=== PATIENT | female | born 1990 ===

== ENCOUNTER 2022-05-10 11:56 | Emergency (ER) | payer OTHER, SELFPAY ==
--- NOTE | 2022-05-10 | DI.US.S_ITS ---
PROCEDURE: US RENAL COMPLETE INDICATIONS: ENLARGED OVARIAN CYSTS BILATERAL ?MASS EFFECT TECHNIQUE: Real-time scanning was performed of the kidneys and bladder, with image documentation. COMPARISON: None. FINDINGS: Kidneys: Kidneys are normal in size. Right kidney measures 12.3 cm long; left kidney measures 11.3 cm long. Right renal cortical thickness is 1.3 cm; left renal cortical thickness is 1.9 cm. Renal cortical echotexture is normal. No hydronephrosis or nephrolithiasis. Trace pelviectasis of the right kidney. No suspicious solid mass lesions. Bladder: Pre-void bladder volume is 314 mL. Post-void residual is 14 mL. Pre-void images demonstrate no intraluminal masses or stones. On pre-void images, bilateral ureteral jets are noted with color Doppler interrogation. (Of note, ureteral jets may not be detectable in up to 25% of cases due to insufficient differences in specific gravity between ureteral and bladder urine). Miscellaneous: No free pelvic fluid. IMPRESSION: Unremarkable renal ultrasound. Dictated by: Dar Rojas M.D. on 05/10/2022 at 17:54 Approved by: Dar Rojas M.D. on 05/10/2022 at 17:56
[2022-05-10 12:07] VITALS: BP 119/70; PULSE 71; RESP 16; TEMP 36.8; O2SAT 100; BMI 29.0
[2022-05-10 12:25] LABS: Add Manual Diff / Slide Review NO; Basophils Absolute Auto 100 /uL (0-100); Basophils Percent Auto 0.6 % (0-2); Eosinophils Absolute Auto 0 /uL (0-450); Eosinophils Percent Auto 0.4 % (2-4); Hematocrit 41.3 % (36-46); Hemoglobin 13.5 g/dL (12.0-16.0); Lymphocytes Absolute Auto 900 /uL (1100-4500); Lymphocytes Percent Auto 9.9 % (25-40); Mean Corpuscular HGB Conc 32.7 % (30-36); Mean Corpuscular Hemoglobin 27.3 PG (26-34); Mean Corpuscular Volume 83.7 fL (80-100); Monocytes Absolute Auto 500 /uL (0-900); Monocytes Percent Auto 5.4 % (3-14); Neutrophils Absolute Auto 8000 /uL (1500-7000); Neutrophils Percent Auto 83.7 % (50-75); Platelet Count 298 X10^3/uL (150-400); Red Blood Cell Count 4.93 X10^6/uL (4.0-5.2); Red Cell Distribution Width 14.4 % (11.6-14.8); White Blood Cell Count 9.5 X10^3/uL (4.5-11.0)
[2022-05-10 12:37] LABS: Alanine Aminotransferase 20 IU/L (<35); Albumin 4.7 g/dL (3.5-5.0); Albumin Globulin Ratio 1.3 (1.0-2.8); Alkaline Phosphatase 63 U/L (38-126); Aspartate Aminotransferase 25 IU/L (14-36); BUN Creatinine Ratio 15.1 (6-22); Blood Urea Nitrogen 11 mg/dL (7-17); Calcium 8.9 mg/dL (8.4-10.2); Carbon Dioxide 29 mmol/L (22-32); Chloride 100 mmol/L (98-107); Estimated Glomerular Filt Rate > 60 mL/min (>60); Globulin 3.6 g/dL (1.7-4.1); Glucose 102 mg/dL (70-100); HEMOLYSIS < 15 (0-50); Lipase 106 U/L (23-300); Potassium 3.6 mmol/L (3.4-5.1); Sodium 137 mmol/L (137-145); Total Protein 8.3 g/dL (6.3-8.2)
--- NOTE | 2022-05-10 13:03 | ED.ABDPAIN ---
HPI - Abdominal Pain <RANDALL Caban - Last Filed: 05/10/22 18:35> General Chief Complaint: Abdominal Pain Stated Complaint: stomach pain sent from urgent care Time Seen by Provider: 05/10/22 12:47 Source: patient Mode of arrival: Ambulatory History of Present Illness HPI narrative: This is a 31-year-old female presents to the emergency department with 4 days of pelvic discomfort she describes as pressure, bloating, urinary frequency and urgency without dysuria. She states that her stools have been loose for approximately 6 months but without blood. She denies nausea vomiting. Denies fever chills, has her 1st appointment with primary care tomorrow with Dr. Margareth jones. She went to urgent care initially and was sent to the emergency department for further evaluation. Her urine dip at urgent care was negative for WBCs, leukocyte esterase and RBCs. No your microscopy was completed. She denies abnormal vaginal discharge, denies fever chills, denies upper respiratory symptoms or flank pain. She states her pain started in the suprapubic region and then has been moving upwards in her abdomen. Her last menses was on April 24. She is not on control, does not take any hormonal medications, has not had any trauma. Related Data Home Medications Medication Instructions Recorded Confirmed No Known Home Medications 05/10/22 05/11/22 Allergies Allergy/AdvReac Type Severity Reaction Status Date / Time No Known Drug Allergies Allergy Unverified 05/11/22 14:00 Review of Systems <RANDALL Caban - Last Filed: 05/10/22 18:35> Review of Systems ROS Unobtainable: All systems reviewed & are unremarkable except as noted in HPI and below Patient History <RANDALL Caban - Last Filed: 05/10/22 18:35> Social History Smoking Status: Never smoker Smoking Status: Never smoker alcohol intake frequency: holidays/special occasions only Substance Use Type: marijuana Exam <RANDALL Caban - Last Filed: 05/10/22 18:35> Narrative Exam Narrative: Reviewed vitals signs and nursing notes. General: cooperative, comfortable, in no acute distress, well groomed, afebrile HEENT: symmetrical facial expressions, moist mucous membranes Cardiovascular: regular rate and rhythm, no peripheral edema, warm extremities Respiratory: normal effort, able to speak in complete sentences, without wheezing, stridor, or abnormal breath sounds. No retractions or tachypnea. GI: abdomen soft, nontender to palpation, nondistended, without masses, rebound tenderness or exquisite tenderness with exam. No CVAT bilaterally, complains of bladder fullness and abdominal distention, MSK: moves all extremities, neurovascularly intact, no weakness, normal tone Skin: brisk capillary refill, without pallor or erythema Neuro: normal speech and cognition, A&O x3, ambulatory, clear speech Psych: mental status is grossly normal, congruent mood, normal affect, pleasant and cooperative Initial Vital Signs Initial Vital Signs: Vital Signs Temperature 98.3 F 05/10/22 12:07 Pulse Rate 71 05/10/22 12:07 Respiratory Rate 16 05/10/22 12:07 Blood Pressure 119/70 05/10/22 12:07 Pulse Oximetry 100 05/10/22 12:07 Oxygen Delivery Method Room Air 05/10/22 12:07 <Gloria Scales DO - Last Filed: 05/12/22 14:15> Initial Vital Signs Initial Vital Signs: Vital Signs Temperature 98.3 F 05/10/22 12:07 Pulse Rate 71 05/10/22 12:07 Respiratory Rate 16 05/10/22 12:07 Blood Pressure 119/70 05/10/22 12:07 Pulse Oximetry 100 05/10/22 12:07 Oxygen Delivery Method Room Air 05/10/22 12:07 Course <RANDALL Caban - Last Filed: 05/10/22 18:35> Orders Ordered: Discontinued Medications Ketorolac Tromethamine (Ketorolac 10 Mg Tablet) 10 mg PO NOW ONE Stop: 05/10/22 15:50 Last Admin: 05/10/22 16:36 Dose: Not Given Documented By: LATRELL Ondansetron HCl (Ondansetron 4 Mg Odt) 4 mg PO NOW PRN PRN Reason: Nausea And Vomiting Ondansetron HCl (Ondansetron 4 Mg/2 Ml Inj) 4 mg IV NOW PRN PRN Reason: Nausea And Vomiting Ondansetron HCl (Ondansetron 4 Mg Odt) 4 mg SL NOW ONE Stop: 05/10/22 15:50 Last Admin: 05/10/22 16:36 Dose: Not Given Documented By: LATRELL Vital Signs Vital signs: Vital Signs - 8 hr 05/10/22 12:07 05/10/22 17:53 Temperature 98.3 F 98.8 F Pulse Rate 71 73 Respiratory Rate 16 18 Blood Pressure 119/70 119/66 Pulse Oximetry 100 100 Oxygen Delivery Method Room Air Room Air <Gloria Scales DO - Last Filed: 05/12/22 14:15> Orders Ordered: Discontinued Medications Ketorolac Tromethamine (Ketorolac 10 Mg Tablet) 10 mg PO NOW ONE Stop: 05/10/22 15:50 Last Admin: 05/10/22 16:36 Dose: Not Given Documented By: LATRELL Ondansetron HCl (Ondansetron 4 Mg Odt) 4 mg PO NOW PRN PRN Reason: Nausea And Vomiting Ondansetron HCl (Ondansetron 4 Mg/2 Ml Inj) 4 mg IV NOW PRN PRN Reason: Nausea And Vomiting Ondansetron HCl (Ondansetron 4 Mg Odt) 4 mg SL NOW ONE Stop: 05/10/22 15:50 Last Admin: 05/10/22 16:36 Dose: Not Given Documented By: LATRELL Vital Signs Vital signs: Vital Signs - 8 hr 05/10/22 12:07 05/10/22 17:53 Temperature 98.3 F 98.8 F Pulse Rate 71 73 Respiratory Rate 16 18 Blood Pressure 119/70 119/66 Pulse Oximetry 100 100 Oxygen Delivery Method Room Air Room Air MDM - Abdominal Pain <RANDALL Caban - Last Filed: 05/10/22 18:35> Lab Data 05/10/22 12:19 05/10/22 12:19 Labs: Lab Results 05/10/22 05/10/22 05/10/22 Range/Units 12:19 12:19 13:50 WBC 9.5 (4.5-11.0) X10^3/uL RBC 4.93 (4.0-5.2) X10^6/uL Hgb 13.5 (12.0-16.0) g/dL Hct 41.3 (36-46) % MCV 83.7 (80-100) fL MCH 27.3 (26-34) PG MCHC 32.7 (30-36) % RDW 14.4 (11.6-14.8) % Plt Count 298 (150-400) X10^3/uL Neut % (Auto) 83.7 H (50-75) % Lymph % (Auto) 9.9 L (25-40) % [place] % (Auto) 5.4 (3-14) % Eos % (Auto) 0.4 L (2-4) % Baso % (Auto) 0.6 (0-2) % Neut # (Auto) 8000 H (7901-7067) /uL Lymph # (Auto) 900 L (2875-8582) /uL [place] # (Auto) 500 (0-900) /uL Eos # (Auto) 0 (0-450) /uL Baso # (Auto) 100 (0-100) /uL Sodium 137 (137-145) mmol/L Potassium 3.6 (3.4-5.1) mmol/L Chloride 100 (98-107) mmol/L Carbon Dioxide 29 (22-32) mmol/L BUN 11 (7-17) mg/dL Creatinine 0.73 (0.52-1.04) mg/dL Estimated GFR > 60 (>60) mL/min BUN/Creatinine Ratio 15.1 (6-22) Glucose 102 H (70-100) mg/dL Calcium 8.9 (8.4-10.2) mg/dL Total Bilirubin 1.0 (0.2-1.3) mg/dL AST 25 (14-36) IU/L ALT 20 (<35) IU/L Alkaline Phosphatase 63 (38-126) U/L Total Protein 8.3 H (6.3-8.2) g/dL Albumin 4.7 (3.5-5.0) g/dL Globulin 3.6 (1.7-4.1) g/dL Albumin/Globulin Ratio 1.3 (1.0-2.8) Lipase 106 (23-300) U/L Urine RBC None seen (0-5/HPF) Urine WBC None seen (0-5/HPF) Ur Squamous Epith Cells 1-5 /hpf (0-5/HPF) Urine Bacteria None seen (None) Ur Culture Indicated? Cult not indicated Point of care testing: Point of Care Testing Test Results Negative Urine Dip Bedside Urine Glucose Negative Bedside Urine Bilirubin - Negative Bedside Urine Ketone - Negative Urine Specific [place] 1.010 Bedside Urine Occult Blood - Negative Bedside Urine pH 6.5 Bedside Urine Protein - Negative Bedside Urine Urobilinogen - Negative Bedside Urine Nitrite - Negative Bedside Urine Leukocytes - Negative Esterase Imaging Data US - UNIT RECEPTIONIST: Radiologist's Impression: PROCEDURE:? US PELVIC COMPLETE ? INDICATIONS:? PELVIC PAIN ? TECHNIQUE:? Real-time scanning was performed of the pelvic organs, with image documentation.? Additional endovaginal scanning was necessary due to incomplete visualization of the adnexal and endometrial structures by transabdominal scanning.? ? COMPARISON:? None. ? FINDINGS:? ?? Uterus:? Uterus is anteverted and normal in size at 8.6 x 5.9 x 4.1 cm. The myometrium is homogeneous. ? The endometrium measures 11 mm combined thickness.? No fibroids.? The endometrium is arcuate in appearance. ? Ovaries:? Right ovary:? 10.0 x 5.9 x 5.6 cm, with an ovarian volume of 171.8 mL.? There is flow within the ovary, indicating no evidence of torsion.? The right ovary contains multiple cystic structures with diffuse echoes within them.? The 1st measures cyst is 5 x 4 x 3.6 cm.? The 2nd cyst is 3.5 x 3.5 x 2.5 cm.? These may potentially represent endometrioma.? Cannot exclude dermoid. ? Left ovary:? 8.8 x 8.8 x 8.0 cm, with a volume of 322 mL.? The left ovary has a large cystic structure which measures 8.4 x 7.9 x 5.6 cm.? There is flow within the left ovary. ?No evidence of left ovarian torsion.? Structure may potentially represent endometrioma.? Dermoid is also possible.? ? Other:? No pathologic free abdominal or pelvic fluid. ? ? IMPRESSION:? ? 1. No evidence of ovarian torsion. ? 2. Both ovaries have large cystic structures with internal echoes which are not typical for hemorrhagic cysts.? Consider endometriomas.? Consider possible dermoids. ? 3. Normal size uterus with arcuate endometrial cavity. ? Comment:? Consider CT to evaluate for presence or absence of fat within these adnexal structures. ? Comment: Findings were discussed with? Dr. Mooney at the time of study dictation. ? We strive to produce accurate, complete, and clear reports of imaging services. To assist us in improving patient care, this report was composed using standard report templates and voice recognition software. Therefore, it may contain abnormal punctuation, insertions and/or omissions. Occasional wrong-word or sound-alike substitutions may occur. Though we review the report and make efforts to correct it, we do recommend that the report be read carefully in proper context to recognize any text inaccuracies. ? ? Dictated by: Dar Rojas M.D. on 05/10/2022 at 17:46 ? ? Approved by: Dar Rojas M.D. on 05/10/2022 at 17:54 ? CT scan - abdomen/pelvis: Radiologist's Impression: PROCEDURE:? CT ABDOMEN PELVIS W CON ? INDICATIONS:? pelvic pain, endometriomas vs ovarian cysts vs? ? TECHNIQUE:? After the administration of oral and IV contrast, axial sections were acquired from the lung bases to the pubic symphysis.? Coronal and sagittal reformats were performed.? For radiation dose reduction, the following was used:? automated exposure control, adjustment of mA and/or kV according to patient size. ? COMPARISON:? [facility], RENAL COMPLETE, 05/10/2022, 14:26.? [facility], PELVIC COMPLETE, 05/10/2022, 14:26. ? FINDINGS:? Image quality:? Excellent.? ? Lung bases:? Unremarkable.? ? Heart:? No significant findings. ? ? ABDOMEN: Liver:? Liver is enlarged measuring 21.0 cm. Gallbladder:? Unremarkable.? ? Biliary ducts:? Unremarkable.? ? Pancreas:? Unremarkable.? ? Spleen:? Unremarkable.? ? Adrenal Glands:? Unremarkable.? ? Kidneys and Ureters:? Unremarkable.? ? ? Stomach and Bowel:? Stomach, small bowel loops, and colon are unremarkable.? Peritoneum:? No abnormal intraperitoneal fluid.? No free air.? ? Ventral Wall: ? No hernia.? Abdominal Nodes:? No retroperitoneal or mesenteric adenopathy by size criteria.? Vessels:? Aorta and inferior vena cava are normal in size.? ? PELVIS: Pelvic Organs:? As identified on pelvic exam, multi cystic foci are present within the ovaries bilaterally.? There is no visualized fat or calcified components.? There is an overall appearance of mild wall thickening. Bladder:? Unremarkable.? ? Pelvic Nodes: No enlarged lymph nodes.? Miscellaneous: No inguinal hernias are seen. ? ? ? Bones:? Unremarkable.? IMPRESSION:? ? Cystic foci within the pelvis appearing to originate from the ovaries bilaterally.? They are considered indeterminate on the basis of this exam.? In correlation with pelvic ultrasound, these are felt not to represent dermoids given lack of fat or calcified components.? While these could represent simple cysts, the size and overall appearance does raise concern for potential cystic malignancy.? Areas of internal hemorrhage are not well classified on CT as would be seen with endometrioma.? Further evaluation with OBGYN is recommended. ? ? Dictated by: Reyna Choe M.D. on 05/10/2022 at 18:12 ? ? Approved by: Reyna Choe M.D. on 05/10/2022 at 18:17 ? MDM Narrative Medical decision making narrative: Chief Complaint: Bloating, pelvic pain and pressure Independent historian: Patient Differential diagnoses include but are not limited to: Interstitial cystitis, constipation, nephrolithiasis, acute cystitis, pyelonephritis, diverticulitis, colitis, uterine fibroids, ovarian mass/cyst, malignancy, STI, PID, vaginitis, endometriosis, IBS/IBD, endometriomas I have independently reviewed the patient's vital signs and nursing notes as well as prior records if available. Pertinent lab findings reviewed: CMP is unremarkable, CBC has a left shift without leukocytosis, mild lymphopenia, no electrolyte abnormalities or any liver enzymes, normal lipase, UA is negative for abnormality as well as the urine microscopy. Vaginal wet prep is negative for abnormality Pertinent Imaging reviewed: Transvaginal ultrasound on wet view shows multiple hemorrhagic cysts with a cervical polyp, right ovary measures 10 cm in left ovary measures 8 cm. Patient was offered Toradol and Zofran which she declined. Patient's ultrasound is or has been pending for a long period of time. She remains p.o. tolerant, afebrile, is updated about delay in her results. Long delay for radiology report, 1744, Dr. Bob Small from radiology called to discuss bilateral adnexal cysts the skip miner blasting reported as hemorrhagic cyst. He recommends CT abdomen pelvis for evaluation of the cystic structures as they could be endometriomas. Patient came in with concern about endometriosis and worsening pelvic and abdominal pain. She is not on hormone therapy or control. CT abdomen pelvis was ordered with contrast, they came to pick her up before 18:00 CT abdomen pelvis came back reporting cystic foci within the pelvis appear to originate from the ovaries bilaterally, and are reported indeterminate. When correlated with a pelvic ultrasound there felt not to represent dermoids given the lack of fat or calcified components, these could represent simple cyst however the size and overall appearance raises concern for potential cystic malignancy. This could be endometriomas versus dermoid cyst. Further evaluation with OBGYN recommended. She does not have any free fluid or air in her abdomen or pelvis. Liver is mildly enlarged, no other abdominal abnormalities on CT scan. No evidence of torsion. Encourage patient to follow-up at her scheduled appointment with Dr. Jones tomorrow. She was given contact information for Dr. Mistry to follow-up with as well. It is recommended that she has OBGYN follow-up due to the abnormal structure of the cyst. She is not on control or hormone therapy. She was given Toradol and is p.o. tolerant, recommended that she follow up with her providers and return emergency department for pain on proportion, nausea vomiting, fever chills. Social considerations that may affect disposition: none Questions are addressed and there is agreement with the plan and for follow-up. Patient is appropriate for outpatient management. MIPS: This encounter doesn't have any diagnosis' associated with MIPS criteria. <Gloria Scales, - Last Filed: 05/12/22 14:15> Lab Data Labs: Lab Results 05/10/22 05/10/22 05/10/22 Range/Units 12:19 12:19 13:50 WBC 9.5 (4.5-11.0) X10^3/uL RBC 4.93 (4.0-5.2) X10^6/uL Hgb 13.5 (12.0-16.0) g/dL Hct 41.3 (36-46) % MCV 83.7 (80-100) fL MCH 27.3 (26-34) PG MCHC 32.7 (30-36) % RDW 14.4 (11.6-14.8) % Plt Count 298 (150-400) X10^3/uL Neut % (Auto) 83.7 H (50-75) % Lymph % (Auto) 9.9 L (25-40) % [place] % (Auto) 5.4 (3-14) % Eos % (Auto) 0.4 L (2-4) % Baso % (Auto) 0.6 (0-2) % Neut # (Auto) 8000 H (8583-9349) /uL Lymph # (Auto) 900 L (0771-7882) /uL [place] # (Auto) 500 (0-900) /uL Eos # (Auto) 0 (0-450) /uL Baso # (Auto) 100 (0-100) /uL Sodium 137 (137-145) mmol/L Potassium 3.6 (3.4-5.1) mmol/L Chloride 100 (98-107) mmol/L Carbon Dioxide 29 (22-32) mmol/L BUN 11 (7-17) mg/dL Creatinine 0.73 (0.52-1.04) mg/dL Estimated GFR > 60 (>60) mL/min BUN/Creatinine Ratio 15.1 (6-22) Glucose 102 H (70-100) mg/dL Calcium 8.9 (8.4-10.2) mg/dL Total Bilirubin 1.0 (0.2-1.3) mg/dL AST 25 (14-36) IU/L ALT 20 (<35) IU/L Alkaline Phosphatase 63 (38-126) U/L Total Protein 8.3 H (6.3-8.2) g/dL Albumin 4.7 (3.5-5.0) g/dL Globulin 3.6 (1.7-4.1) g/dL Albumin/Globulin Ratio 1.3 (1.0-2.8) Lipase 106 (23-300) U/L Urine RBC None seen (0-5/HPF) Urine WBC None seen (0-5/HPF) Ur Squamous Epith Cells 1-5 /hpf (0-5/HPF) Urine Bacteria None seen (None) Ur Culture Indicated? Cult not indicated Point of care testing: Point of Care Testing Test Results Negative Urine Dip Bedside Urine Glucose Negative Bedside Urine Bilirubin - Negative Bedside Urine Ketone - Negative Urine Specific [place] 1.010 Bedside Urine Occult Blood - Negative Bedside Urine pH 6.5 Bedside Urine Protein - Negative Bedside Urine Urobilinogen - Negative Bedside Urine Nitrite - Negative Bedside Urine Leukocytes - Negative Esterase Discharge Plan Departure Patient Disposition: Home Clinical Impression: Cervical polyp, Pelvic pain Ovarian cyst Qualifiers: Laterality: bilateral Qualified Code(s): N83.201 - Unspecified ovarian cyst, right side Instructions: Ovarian Cyst, Endometriosis Activity Restrictions/Additional Instructions: *You have been diagnosed with multiple ovarian cysts which appear to be dermoids but could also be endometriomas which are related to endometriosis. The CT scan does not show anything dangerous, the cysts appear to be most like simple ovarian cysts which are not take complicated however follow-up and further evaluation with OBGYN is recommended. For your appointment tomorrow, please just go to it, she can place a referral to you for OBGYN however I have also sent this message to Dr. Mistry and encourage you to call and schedule follow-up with her as able. This may be best to visualize on repeat ultrasound. Please stay hydrated, take Tylenol and ibuprofen every 6 hours as needed for your pain with something to eat. If you have a sudden change in your pain, and develop nausea or vomiting or severe pain please come back to the emergency department. No evidence of anything dangerous today however follow-up will be important for you later. Thank you for all of your patients today, please bring this CT result in your pelvis ultrasound report with you tomorrow. It may be ideal to incorporate MiraLax until your diet to encourage soft stools. Firm stools are very painful over the ovaries, and yours are slightly larger than normal. This is not a diagnosis of endometriosis but the cysts may reflect endometrioma and/ or dermoids. You do not have free fluid or air in the abdomen or pelvis. This is good news. *What to do: *Please continue to take your regular medications as directed. [ ] New medication prescriptions sent to your pharmacy: [ ] [ ] New medication written as a paper prescription [ x] No new medications given *Please follow up with your primary care provider in 2-3 days, call for an appointment. Let them know you were seen in the Emergency Department and that we asked that you be seen for follow-up. We will electronically transmit a record of today's note if your PCP is in our system *If you do not have a primary care provider please contact [phone] to establish care with one of the [facility] primary care providers. *Return to Emergency Department if you should have any new, worsening, or concerning symptoms, such as [fever greater than 101F, chills, worsening pain, persistent vomiting or other bothersome symptoms]. Prescriptions: No Action No Known Home Medications Referrals: Jonna Mistry MD [Physician] - Felicia Jones DO [Physician] - Stand Alone Forms: Patient Portal/API <Gloria Scales DO - Last Filed: 05/12/22 14:15> Cosign ED Attending Cosignature Attestation: I was immediately available in the department for consultation. Documentation has been reviewed.
--- NOTE | 2022-05-10 13:52 | DI.US.S_ITS ---
PROCEDURE: US PELVIC COMPLETE INDICATIONS: PELVIC PAIN TECHNIQUE: Real-time scanning was performed of the pelvic organs, with image documentation. Additional endovaginal scanning was necessary due to incomplete visualization of the adnexal and endometrial structures by transabdominal scanning. COMPARISON: None. FINDINGS: Uterus: Uterus is anteverted and normal in size at 8.6 x 5.9 x 4.1 cm. The myometrium is homogeneous. The endometrium measures 11 mm combined thickness. No fibroids. The endometrium is arcuate in appearance. Ovaries: Right ovary: 10.0 x 5.9 x 5.6 cm, with an ovarian volume of 171.8 mL. There is flow within the ovary, indicating no evidence of torsion. The right ovary contains multiple cystic structures with diffuse echoes within them. The 1st measures cyst is 5 x 4 x 3.6 cm. The 2nd cyst is 3.5 x 3.5 x 2.5 cm. These may potentially represent endometrioma. Cannot exclude dermoid. Left ovary: 8.8 x 8.8 x 8.0 cm, with a volume of 322 mL. The left ovary has a large cystic structure which measures 8.4 x 7.9 x 5.6 cm. There is flow within the left ovary. No evidence of left ovarian torsion. Structure may potentially represent endometrioma. Dermoid is also possible. Other: No pathologic free abdominal or pelvic fluid. IMPRESSION: 1. No evidence of ovarian torsion. 2. Both ovaries have large cystic structures with internal echoes which are not typical for hemorrhagic cysts. Consider endometriomas. Consider possible dermoids. 3. Normal size uterus with arcuate endometrial cavity. Comment: Consider CT to evaluate for presence or absence of fat within these adnexal structures. Comment: Findings were discussed with Dr. Mooney at the time of study dictation. We strive to produce accurate, complete, and clear reports of imaging services. To assist us in improving patient care, this report was composed using standard report templates and voice recognition software. Therefore, it may contain abnormal punctuation, insertions and/or omissions. Occasional wrong-word or sound-alike substitutions may occur. Though we review the report and make efforts to correct it, we do recommend that the report be read carefully in proper context to recognize any text inaccuracies. Dictated by: Dar Rojas M.D. on 05/10/2022 at 17:46 Approved by: Dar Rojas M.D. on 05/10/2022 at 17:54
[2022-05-10 14:16] LABS: Bacteria Urine None Seen; Culture Indicated Urine Cult Not Indicated; RBC Urine None Seen (0-5/HPF); Squamous Epithelial Cell Urine 1-5 /HPF (0-5/HPF); WBC Urine None Seen (0-5/HPF)
--- NOTE | 2022-05-10 16:09 | PC.NURSE ---
Pt declines toradol and zofran. Provider notified.
--- NOTE | 2022-05-10 17:49 | DI.CT.S_ITS ---
PROCEDURE: CT ABDOMEN PELVIS W CON INDICATIONS: pelvic pain, endometriomas vs ovarian cysts vs? TECHNIQUE: After the administration of oral and IV contrast, axial sections were acquired from the lung bases to the pubic symphysis. Coronal and sagittal reformats were performed. For radiation dose reduction, the following was used: automated exposure control, adjustment of mA and/or kV according to patient size. COMPARISON: [facility], , RENAL COMPLETE, 05/10/2022, 14:26. [facility], , US PELVIC COMPLETE, 05/10/2022, 14:26. FINDINGS: Image quality: Excellent. Lung bases: Unremarkable. Heart: No significant findings. ABDOMEN: Liver: Liver is enlarged measuring 21.0 cm. Gallbladder: Unremarkable. Biliary ducts: Unremarkable. Pancreas: Unremarkable. Spleen: Unremarkable. Adrenal Glands: Unremarkable. Kidneys and Ureters: Unremarkable. Stomach and Bowel: Stomach, small bowel loops, and colon are unremarkable. Peritoneum: No abnormal intraperitoneal fluid. No free air. Ventral Wall: No hernia. Abdominal Nodes: No retroperitoneal or mesenteric adenopathy by size criteria. Vessels: Aorta and inferior vena cava are normal in size. PELVIS: Pelvic Organs: As identified on pelvic exam, multi cystic foci are present within the ovaries bilaterally. There is no visualized fat or calcified components. There is an overall appearance of mild wall thickening. Bladder: Unremarkable. Pelvic Nodes: No enlarged lymph nodes. Miscellaneous: No inguinal hernias are seen. Bones: Unremarkable. IMPRESSION: Cystic foci within the pelvis appearing to originate from the ovaries bilaterally. They are considered indeterminate on the basis of this exam. In correlation with pelvic ultrasound, these are felt not to represent dermoids given lack of fat or calcified components. While these could represent simple cysts, the size and overall appearance does raise concern for potential cystic malignancy. Areas of internal hemorrhage are not well classified on CT as would be seen with endometrioma. Further evaluation with OBGYN is recommended. Dictated by: Reyna Choe M.D. on 05/10/2022 at 18:12 Approved by: Reyna Choe M.D. on 05/10/2022 at 18:17
[2022-05-10 17:53] VITALS: BP 119/66; PULSE 73; RESP 18; TEMP 37.1; O2SAT 100
[2022-05-10 18:48] VITALS: PULSE 85; RESP 18; O2SAT 100
--- NOTE | 2022-05-10 18:54 | PC.NURSE ---
Pt left phone in ED. Phone is now at ED admitting desk. Bag is labeled w/ pt name. [employer] aware.
== END 2022-05-10 18:49 | disposition home or self-care (01) ==
PROVIDERS: Emergency Medicine; Emergency Provider Nurse Practitioner Critical Care Medicine
DX: N84.1 Polyp of cervix uteri (principal); N83.201 Unspecified ovarian cyst, right side; R10.2 Pelvic and perineal pain
CPT/HCPCS: 36415; 74177; 76770; 76830; 76856; 80053; 81003; 81015; 81025; 83690; 85025; 87210; 93975; 99283; 99284; Q9967

== ENCOUNTER → 2022-05-18 16:59 | Outpatient (CLI) | payer OTHER, SELFPAY ==
[2022-05-18 18:45] LABS: Cancer Antigen 125 410 U/mL (0-35)
== END ==
PROVIDERS: PCP Registered Nurse Diabetes Educator; Referring Provider Registered Nurse Diabetes Educator; Visit Provider Registered Nurse Diabetes Educator
DX: N83.209 Unspecified ovarian cyst, unspecified side (principal)
CPT/HCPCS: 36415; 86304

== ENCOUNTER → 2022-07-14 16:35 | Outpatient (CLI) | payer OTHER, SELFPAY ==
[2022-07-18 20:08] LABS: Deamidated Gliadin Ab IgA 6 units (0-19); Deamidated Gliadin Ab IgG 5 units (0-19); Immunoglobulin A,Qn 194 mg/dL (87-352); t-Transglutaminase IgA <2 U/mL (0-3)
[2022-07-23 20:38] LABS: Almond IgE <0.10 kU/L (Class 0); Cashew Nut IgE <0.10 kU/L (Class 0); Codfish Allergy IgE < 0.10 kU/L (Class 0); Egg White IgE <0.10 kU/L (Class 0); Hazelnut IgE <0.10 kU/L (Class 0); Milk IgE <0.10 kU/L (Class 0); Peanut IgE 0.11 kU/L (Class 0/I); Salmon Allergy IgE < 0.10 kU/L (Class 0); Scallop Allergy IgE < 0.10 kU/L (Class 0); Shrimp IgE <0.10 kU/L (Class 0); Soybean IgE <0.10 kU/L (Class 0); Tuna Allergy IgE < 0.10 kU/L (Class 0); Walnut IgE <0.10 kU/L (Class 0); Wheat Allergy IgE < 0.10 kU/L (Class 0)
== END ==
PROVIDERS: PCP Registered Nurse Diabetes Educator; Referring Provider Registered Nurse Diabetes Educator; Visit Provider Registered Nurse Diabetes Educator
DX: K52.9 Noninfective gastroenteritis and colitis, unspecified (principal)
CPT/HCPCS: 36415; 82784; 83516; 86003

== ENCOUNTER → 2022-08-14 17:23 | Outpatient (CLI) | payer OTHER, SELFPAY ==
[2022-08-14 18:37] LABS: Cancer Antigen 125 30.1 U/mL (0-35)
== END ==
PROVIDERS: PCP Registered Nurse Diabetes Educator; Referring Provider Obstetrics & Gynecology; Visit Provider Obstetrics & Gynecology
DX: N80.9 Endometriosis, unspecified (principal); R97.1 Elevated cancer antigen 125 [CA 125]
CPT/HCPCS: 36415; 86304

== ENCOUNTER → 2023-06-10 12:02 | Outpatient (CLI) | payer OTHER, SELFPAY ==
[2023-06-10 13:49] LABS: Urine N gonorrhoeae NOT DETECTED
[2023-06-10 14:03] LABS: Urine Chlamydia NOT DETECTED
== END ==
PROVIDERS: PCP Registered Nurse Diabetes Educator; Visit Provider Physician Assistant Medical
DX: Z20.2 Contact with and (suspected) exposure to infections with a predominantly sexual mode of transmission (principal)
CPT/HCPCS: 87491; 87591

== ENCOUNTER → 2024-01-29 16:25 | Outpatient (CLI) | payer OTHER, SELFPAY ==
[2024-01-29 17:22] LABS: Urine Volume 10mL (spun)
[2024-01-29 17:27] LABS: Bacteria Urine Occasional (0-1); Culture Indicated Urine Cult Not Indicated; RBC Urine None Seen (0-5/HPF); Squamous Epithelial Cell Urine 0-1 /HPF (0-5/HPF); WBC Urine None Seen (0-5/HPF)
== END ==
PROVIDERS: PCP Registered Nurse Diabetes Educator; Referring Provider Physician Assistant; Visit Provider Physician Assistant
DX: R10.2 Pelvic and perineal pain (principal); Z87.42 Personal history of other diseases of the female genital tract
CPT/HCPCS: 81015

== ENCOUNTER → 2024-03-17 16:28 | Outpatient (CLI) | payer OTHER, SELFPAY ==
--- NOTE | 2024-03-17 16:30 | DI.US.S_ITS ---
PROCEDURE: US PELVIC COMPLETE INDICATIONS: Pelvic pain; hx of bilateral large ovarian cysts TECHNIQUE: Real-time scanning was performed of the pelvic organs, with image documentation. Additional endovaginal scanning was necessary due to incomplete visualization of the adnexal and endometrial structures by transabdominal scanning. COMPARISON: [facility], CT, CT ABDOMEN PELVIS W CON, 05/10/2022, 17:53. [facility], US, US PELVIC COMPLETE, 05/10/2022, 14:26. FINDINGS: Uterus: 8.3 x 6.4 x 3.9 cm. Endometrium measures 13 mm, upper limit of normal for age. Small myometrial cyst in the posterior body measures 5 x 4 mm. Anteverted positioning Ovaries: Mildly enlarged bilateral ovary measuring 12 cc on the right and 16 cc on the left. Small cystic lesion with internal echoes in the right ovary measuring 2.4 x 1.9 x 2 cm. Left ovary thick walled cyst with internal echoes measuring 2.2 x 1.8 cm. Other: No pathologic free abdominal or pelvic fluid. IMPRESSION: Mildly enlarged bilateral ovaries with complicated appearing cysts, that are decreased in size compared to prior imaging. These may represent hemorrhagic cysts or decreased size of endometriomas. Pelvic MRI could help differentiate, otherwise, consider continued sonographic surveillance depending on clinical context. Endometrium is 13 mm, which is the upper limit of normal. Dictated by: Saravanan Maya M.D. on 03/17/2024 at 21:26 Approved by: Saravanan Maya M.D. on 03/17/2024 at 21:30
== END ==
PROVIDERS: PCP Registered Nurse Diabetes Educator; Referring Provider Physician Assistant; Visit Provider Physician Assistant
DX: N83.202 Unspecified ovarian cyst, left side (principal); N83.201 Unspecified ovarian cyst, right side; N80.9 Endometriosis, unspecified; R10.2 Pelvic and perineal pain; Z87.42 Personal history of other diseases of the female genital tract
CPT/HCPCS: 76856